=== PATIENT | female | born 1975 | race Caucasian/White ===

== ENCOUNTER 2016-10-19 05:43 | Day surgery (SDC) | payer OTHER ==
[~2016-10-19] VITALS: Ht 154.9 cm; Wt 94.3 kg
[2016-10-19] MEDS ORDERED: PROPOFOL 200 MG/20 ML VIAL IV ONE (07:24)
[2016-10-19] MEDS ORDERED: LIDOCAINE 2% 100 MG/5 ML SYR IVP ONE (07:24)
[2016-10-19] MEDS ORDERED: SEVOFLURANE 250 ML BTL INH ONE (07:24)
[2016-10-19] MEDS ORDERED: PRENATAL LOW IR1 TA1 PO (07:33)
[2016-10-19] MEDS ORDERED: MIDAZOLAM 2 MG/2 ML VIAL ONE (07:33)
[2016-10-19] MEDS ORDERED: FERROUS SULFAT325 MG PO (07:33)
[2016-10-19] MEDS ORDERED: ONDANSETRON 4 MG/2 ML VIAL IVP PRN ×2 (07:50→08:00)
[2016-10-19] MEDS ORDERED: HYDROmorphone 1 MG/ML AMP IVP PRN (07:50)
[2016-10-19] MEDS ORDERED: ACETAMINOPHEN/CODEINE 300/30MG 1 TAB PO PRN (08:00)
[2016-10-19] MEDS ORDERED: MORPHINE SULFATE 4 MG/ML SYR IM/IVP PRN (08:00)
[2016-10-19] MEDS ORDERED: IBUPROFEN 800 MG TAB PO PRN (08:00)
[2016-10-19] MEDS ORDERED: HYDROmorphone PFS 2 MG/ML SYR ONE (08:25)
== END 2016-10-19 10:05 | disposition home or self-care (01) ==
LOC: EDBD 05:43 → MDS 05:43 → MMU 06:05 → MDS 10:05
PROVIDERS: ATTEND Obstetrics & Gynecology
DX: N92.1 Excessive and frequent menstruation with irregular cycle (principal); E66.9 Obesity, unspecified; F17.210 Nicotine dependence, cigarettes, uncomplicated; I12.9 Hypertensive chronic kidney disease with stage 1 through stage 4 chronic kidney disease, or unspecified chronic kidney disease; E11.22 Type 2 diabetes mellitus with diabetic chronic kidney disease; N18.9 Chronic kidney disease, unspecified; F03.90 Unspecified dementia, unspecified severity, without behavioral disturbance, psychotic disturbance, mood disturbance, and anxiety; D64.9 Anemia, unspecified; G40.909 Epilepsy, unspecified, not intractable, without status epilepticus
CPT/HCPCS: 36415; 58120; 80053; 84702; 85025; J1170; J2001; J2250; J2270; J2405; J2704; J7030; J7120